=== PATIENT | female | born 1930 | race Asian ===

== ENCOUNTER → 2017-01-31 | Day surgery (SDC) | payer BC ==
--- NOTE | 2017-02-04 13:16 | PATH ---
Surgical Pathology Report Patient Name: GENE MALONEY [facility]. Rec. #: [id number] /Age/Gender: 1930 (Age: 86) / F Account: [id number] Location: [facility] Taken: 01/31/2017 Received: 01/31/2017 Reported: 02/04/2017 Physicians: Paola Warner M.D. Specimen(s) Received A: RIGHT BREAST SPECIMEN WITH CALCIFICATIONS B: RIGHT BREAST SPECIMEN WITHOUT CALCIFICATIONS C: LEFT BREAST SPECIMEN WITH CALCIFICATIONS D: LEFT BREAST SPECIMEN WITHOUT CALCIFICATIONS Clinical History Non-palpable lesion Mammographic findings: Suspicious microcalcification right & left breast Final Diagnosis A. 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 B. 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 C. 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 FEW CALCIFICATIONS ARE PRESENT IN ASSOCIATION WITH BENIGN STROMA AND BLOOD VESSEL WALL. D. BREAST, LEFT, WITHOUT CALCIFICATIONS, STEREOTACTIC BIOPSY: BENIGN BREAST TISSUE SHOWING USUAL DUCTAL HYPERPLASIA (UDH), FIBROADENOMATOID CHANGE AND STROMAL FIBROSIS. CALCIFICATIONS ARE PRESENT IN ASSOCIATION WITH SCLEROTIC STROMA IN FIBROADENOMATOID CHANGE AND BENIGN GLANDULAR PARENCHYMA. Electronically Signed Jil Bell M.D. Gross Description A. Received in formalin labeled "right breast with calcifications," are 3 anderson-yellow, cylindrical portions of fibroadipose tissue ranging from 1.7-2.6 cm in length and averaging 0.2 cm in diameter. The specimens are submitted in toto in one cassette. B. Received in formalin labeled "right breast without calcifications," are 7 anderson-yellow, cylindrical portions of fibroadipose tissue ranging from 1.5-3.8 cm in length and averaging 0.3 cm in diameter. The specimens are submitted in toto in one cassette. C. Received in formalin labeled "left breast with calcifications," are 3 anderson-yellow, cylindrical portions of fibroadipose tissue ranging from 1.3-3.2 cm in length and averaging 0.2 cm in diameter. The specimens are submitted in toto in one cassette. D. Received in formalin labeled "left breast without calcifications," are 8 anderson-yellow, cylindrical portions of fibroadipose tissue ranging from 1.2-3.1 cm in length and averaging 0.3 cm in diameter. The specimens are submitted in toto in two cassettes. Time to formalin fixation: 5 minutes Total formalin fixation time: Approximately 6 hours 01/31/2017
== END | disposition home or self-care (01) ==
LOC: FMAMMOTONE 10:19
PROVIDERS: ATTEND Internal Medicine Geriatric Medicine
PROC: 0HBV3ZX Excision of Bilateral Breast, Percutaneous Approach, Diagnostic (ICD-10-PCS; principal; 2017-01-31)
DX: D24.1 Benign neoplasm of right breast (principal); N60.91 Unspecified benign mammary dysplasia of right breast; D24.2 Benign neoplasm of left breast; N64.9 Disorder of breast, unspecified; N62 Hypertrophy of breast; N60.82 Other benign mammary dysplasias of left breast; N60.32 Fibrosclerosis of left breast; R92.8 Other abnormal and inconclusive findings on diagnostic imaging of breast
CPT/HCPCS: 19081; 19082; 87899; 88305-TC; A4648

== ENCOUNTER 2019-03-13 16:43 | Emergency (ER) | payer OTHER ==
--- NOTE | 2019-03-13 16:59 | PDOC ---
Rapid Medical Evaluation Medical Evaluation: I have performed a brief in-person evaluation of this patient. The patient presents with a chief complaint of: sent by PCP for generalized weakness and urinary incontinence from yesterday; denies trauma, back pain, sob , cp, abd pain, vomiting, dizziness; patient ambulatory at baseline; hx of HTN Pertinent physical exam findings: In NAD, no focal deficits I have ordered the following: Labs, EKG, urine The patient will proceed to the ED for further evaluation. 03/13/19 16:52
[2019-03-13 17:00] VITALS: BP 140/80; PULSE 83; TEMP 98.5; BMI 26.4
[2019-03-13 17:56] LABS: BASO % 1.1 % (0-2.0); EOS % 1.2 % (0-4.5); HEMATOCRIT 41.1 % (32.4-45.2); HEMOGLOBIN 13.5 GM/dL (10.7-15.3); LYMPH % 37.1 % (8-40); MCHC 32.9 g/dl (32.0-36.0); MEAN CELL VOLUME 94.4 fl (80-96); MEAN PLT VOLUME 9.2 fl (7.5-11.1); NEUT % 52.6 % (42.8-82.8); PLATELET COUNT 181 K/MM3 (134-434); RBC 4.35 M/mm3 (3.60-5.2); RDW 14.9 % (11.6-15.6); WHITE BLOOD COUNT 5.6 K/mm3 (4.0-10.0)
[2019-03-13 18:22] LABS: ALBUMIN 3.7 g/dl (3.4-5.0); ALK PHOS 62 U/L (45-117); ANION GAP 7 MMOL/L (8-16); BILIRUBIN,TOTAL 0.4 mg/dL (0.2-1); BLOOD UREA NITROGEN 15.6 mg/dL (7-18); CALCIUM 9.3 mg/dL (8.5-10.1); CHLORIDE 101 mmol/L (98-107); CO2 27 mmol/L (21-32); CREATININE 0.8 mg/dL (0.55-1.3); GLUCOSE,RANDOM 100 mg/dL (74-106); POTASSIUM 4.1 mmol/L (3.5-5.1); SGOT/AST 50 U/L (15-37); SGPT/ALT 45 U/L (13-61); SODIUM 136 mmol/L (136-145); TOT PROT 7.4 g/dl (6.4-8.2)
[2019-03-13 18:23] LABS: URINE APPEARANCE CLEAR; URINE BILIRUBIN NEGATIVE (NEGATIVE); URINE COLOR YELLOW; URINE GLUCOSE (UA) NEGATIVE (NEGATIVE); URINE KETONE NEGATIVE (NEGATIVE); URINE LEUK ESTERASE NEGATIVE (NEGATIVE); URINE NITRITE NEGATIVE (NEGATIVE); URINE PROTEIN TRACE (NEGATIVE); URINE UROBILINOGEN 0.2 mg/dL (0.2-1.0)
--- NOTE | 2019-03-13 19:58 | PDOC ---
History of Present Illness - General Chief Complaint: Weakness Stated Complaint: WEAKNESS Time Seen by Provider: 03/13/19 16:51 History Source: Patient Exam Limitations: No Limitations Past History - Past Medical History Allergies/Adverse Reactions: Allergies Allergy/AdvReac Type Severity Reaction Status Date / Time No Known Allergies Allergy Verified 03/13/19 16:55 COPD: No - Immunization History Immunization Up to Date: Yes - Suicide/Smoking/Psychosocial Hx Smoking History: Never smoked Have you smoked in the past 12 months: No Information on smoking cessation initiated: No Hx Alcohol Use: No Drug/Substance Use Hx: No *Physical Exam - Vital Signs Last Vital Signs Temp Pulse Resp BP Pulse Ox 98.5 F 83 16 140/80 98 03/13/19 16:55 03/13/19 16:55 03/13/19 16:55 03/13/19 16:55 03/13/19 16:55 ED Treatment Course - LABORATORY CBC & Chemistry Diagram: 03/13/19 17:21 03/13/19 17:21 - ADDITIONAL ORDERS Additional order review: Laboratory Results 03/13/19 03/13/19 18:02 17:21 Sodium 136 Potassium 4.1 Chloride 101 Carbon Dioxide 27 Anion Gap 7 L BUN 15.6 Creatinine 0.8 Est GFR (CKD-EPI)AfAm 76.83 Est GFR (CKD-EPI)NonAf 66.29 Random Glucose 100 Calcium 9.3 Total Bilirubin 0.4 AST 50 H ALT 45 Alkaline Phosphatase 62 Troponin I < 0.02 Total Protein 7.4 Albumin 3.7 Urine Color Yellow Urine Appearance Clear Urine pH 7.0 Ur Specific [place] 1.006 L Urine Protein Trace Urine Glucose (UA) Negative Urine Ketones Negative Urine Blood Negative Urine Nitrite Negative Urine Bilirubin Negative Urine Urobilinogen 0.2 Ur Leukocyte Esterase Negative 03/13/19 17:21 RBC 4.35 MCV 94.4 MCHC 32.9 RDW 14.9 MPV 9.2 Neutrophils % 52.6 Lymphocytes % 37.1 Monocytes % 8.0 Eosinophils % 1.2 Basophils % 1.1 - RADIOLOGY Radiology Studies Ordered: Category Date Time Status HEAD CT WITHOUT CONTRAST [CT] Stat CT Scan 03/13/19 19:55 Ordered CHEST PA & LAT [RAD] Stat Radiology 03/13/19 19:21 Ordered *DC/Admit/Observation/Transfer Diagnosis at time of Disposition: Weakness - Discharge Dispostion Disposition: HOME Decision to Admit order: No - Referrals Referrals: Walker Medina MD [Primary Care Provider] - - Patient Instructions Printed Discharge Instructions: DI for Muscle Weakness Additional Instructions: You were seen in the emergency department for the evaluation of you weakness. Your labs were within normal limits and your head ct was negative. Please follow up with Dr. Medina within 1 week after discharge. Please return to the emergency department if you have worsening pain or new concerning symptoms such as nausea/vomiting, shortness of breath, and fevers. - Post Discharge Activity
--- NOTE | 2019-03-13 23:42 | PDOC ---
Documentation entered by Juan Fox SCRIBE, acting as scribe for Mal Cm MD. Mal Cm MD: This documentation has been prepared by the Dominique bauman Xhesika, SCRIBE, under my direction and personally reviewed by me in its entirety. I confirm that the documentation accurately reflects all work, treatment, procedures, and medical decision making performed by me. Attending Attestation - Resident Resident Name: Lyle Rodríguez - ED Attending Attestation I have performed the following: I have examined & evaluated the patient, The case was reviewed & discussed with the resident, I agree w/resident's findings & plan, Exceptions are as noted - HPI HPI: 03/13/19 22:15 The patient is an 88 year old female, with a significant past medical history of HTN, Parkinsons, and fatty liver who presents to the ED for generalized weakness since yesterday. Patient states she was trying to stand up and use the restroom, however, she had b/l leg weakness so she crawled to the bathroom and endorsed urinary incontinence. Patient called her PCP, Dr. Medina, and was advised to come to the ED for CT. Pt denies falling or any trauma. The patient denies chest pain, shortness of breath. Denies fever, chills, cough , nausea, vomiting, diarrhea and constipation. Denies dysuria, frequency, urgency and hematuria. Allergies:, NKDA Social Hx: Denies current smoking, drinking, or other substance usage. PCP: Dr. Medina - Physicial Exam PE: 03/13/19 22:16 Vitals: Triage Vital signs reviewed General Appearance: no acute distress, well nourished well developed, Head: Atraumatic, normocephalic Neck: Supple;No Nuchal rigidity Chest Wall: Nontender Cardiac: Regular rate and rhythm, no murmurs, no rubs, no gallops, Lungs: Clear to auscultation bilateral, good air movement bilaterally, Abdomen: Soft, nondistended, normal bowel sounds, nontender to palpation Extremities: Full range of motion to all extremities, no cyanosis, clubbing, or edema Skin: Warm and dry, no rashes or lesions, no petechiae Neuro: AOX3; Cranial Nerves 2-12 grossly c intact, Strength intact to all extremities, Sensation intact to all extremities, gait normal Psych: normal mood, normal affect - Medical Decision Making 03/14/19 01:52 The patient is an 88 year old female, with a significant past medical history of HTN, Parkinsons, and fatty liver who presents to the ED for generalized weakness since yesterday. Patient states she was trying to stand up and use the restroom, however, she had b/l leg weakness so she crawled to the bathroom and endorsed urinary incontinence. Patient called her PCP, Dr. Medina, and was advised to come to the ED for CT. Pt denies falling or any trauma. Pt. with no CT abnormalities, labs wnl. Pt. requesting to return home. Findings the need for follow up and strict return instructions d/w patient
--- NOTE | 2019-03-16 07:15 | EKG ---
Test Reason : Blood Pressure : / mmHG Vent. Rate : 084 BPM Atrial Rate : 084 BPM P-R Int : 206 ms QRS Dur : 086 ms QT Int : 384 ms P-R-T Axes : 054 005 031 degrees QTc Int : 453 ms NORMAL SINUS RHYTHM NORMAL ECG WHEN COMPARED WITH ECG OF 01-APR-2011 02:10, NO SIGNIFICANT CHANGE WAS FOUND Confirmed by BHAVESH MCGRATH MD ([id number]) on 03/16/2019 7:15:49 AM Referred By: Confirmed By:BHAVESH MCGRATH MD
== END 2019-03-13 22:52 | disposition home or self-care (01) ==
LOC: JER 16:43
DX: R53.1 Weakness (principal); I10 Essential (primary) hypertension; G20 Parkinson's disease; K76.0 Fatty (change of) liver, not elsewhere classified
CPT/HCPCS: 36415; 70450-TC; 71046-TC-FY; 80053; 81003; 82550; 82553; 84484; 85025; 87086; 93005; 93010; 99283-25

== ENCOUNTER 2021-03-21 11:04 | Inpatient (IN) | payer OTHER ==
[2021-03-21 11:33] VITALS: BMI 28.3
[2021-03-21 13:25] LABS: BASO % 1.5 % (0-2.0); EOS % 0.5 % (0-4.5); HEMATOCRIT 37.9 % (32.4-45.2); HEMOGLOBIN 13.1 GM/dL (10.7-15.3); LYMPH % 32.7 % (8-40); MCH 32.4 pg (25.7-33.7); MCHC 34.6 g/dl (32.0-36.0); MEAN CELL VOLUME 93.7 fl (80-96); MEAN PLT VOLUME 8.4 fl (7.5-11.1); MONO % 8.2 % (3.8-10.2); NEUT % 57.1 % (42.8-82.8); PLATELET COUNT 186 10^3/uL (134-434); RBC 4.04 M/mm3 (3.60-5.2); RDW 14.5 % (11.6-15.6); WHITE BLOOD COUNT 5.3 K/mm3 (4.0-10.0)
[2021-03-21 13:45] LABS: CHLORIDE 105 mmol/L (98-107); SODIUM 140 mmol/L (136-145)
[2021-03-21 13:47] LABS: ALBUMIN 3.7 g/dl (3.4-5.0); ANION GAP 8 MMOL/L (8-16); BLOOD UREA NITROGEN 22.4 mg/dL (7-18); CALCIUM 9.3 mg/dL (8.5-10.1); CO2 28 mmol/L (21-32)
[2021-03-21 13:48] LABS: GLUCOSE,RANDOM 88 mg/dL (74-106)
[2021-03-21 13:51] LABS: CREATININE 0.8 mg/dL (0.55-1.3); SGOT/AST 25 U/L (15-37); SGPT/ALT 28 U/L (13-61)
[2021-03-21 13:52] LABS: BILIRUBIN,TOTAL 0.7 mg/dL (0.2-1); TOT PROT 7.8 g/dl (6.4-8.2)
[2021-03-21 13:53] LABS: ALK PHOS 48 U/L (45-117)
[2021-03-21 16:30] LABS: EPI CELLS 8 /uL (0-25.1); HYALINE CASTS 0 /uL (0-3.1); PH,URINE 5.5 (5.0-8.0); URINE APPEARANCE CLEAR; URINE BACTERIA 3493 /uL (0-1359); URINE BILIRUBIN NEGATIVE (NEGATIVE); URINE COLOR YELLOW; URINE GLUCOSE (UA) NEGATIVE (NEGATIVE); URINE KETONE TRACE (NEGATIVE); URINE LEUK ESTERASE TRACE (NEGATIVE); URINE NITRITE POSITIVE (NEGATIVE); URINE PROTEIN NEGATIVE (NEGATIVE); URINE RBC 4 /uL (0-23.9); URINE UROBILINOGEN 0.2 mg/dL (0.2-1.0); URINE WBC 50 /uL (0-25.8)
[2021-03-22 07:24] LABS: BASO % 1.3 % (0-2.0); EOS % 1.6 % (0-4.5); HEMATOCRIT 36.3 % (32.4-45.2); HEMOGLOBIN 12.5 GM/dL (10.7-15.3); LYMPH % 36.6 % (8-40); MCH 32.2 pg (25.7-33.7); MCHC 34.5 g/dl (32.0-36.0); MEAN CELL VOLUME 93.4 fl (80-96); MEAN PLT VOLUME 8.3 fl (7.5-11.1); MONO % 7.1 % (3.8-10.2); NEUT % 53.4 % (42.8-82.8); PLATELET COUNT 162 10^3/uL (134-434); RBC 3.89 M/mm3 (3.60-5.2); RDW 14.3 % (11.6-15.6); WHITE BLOOD COUNT 6.5 K/mm3 (4.0-10.0)
[2021-03-22 07:45] LABS: CALCIUM 8.7 mg/dL (8.5-10.1)
[2021-03-22 07:46] LABS: BLOOD UREA NITROGEN 21.2 mg/dL (7-18)
[2021-03-22 07:49] LABS: CREATININE 0.7 mg/dL (0.55-1.3)
[2021-03-22] MEDS: ATENOLOL 50 MG TABLET (FP) PO SCH (16:12)
[2021-03-22] MEDS: LOSARTAN 50MG/HCTZ 12.5MG 1 TAB PO SCH (17:26)
[2021-03-23] MEDS: ATENOLOL 50 MG TABLET (FP) PO SCH (10:33)
[2021-03-23] MEDS: LOSARTAN 50MG/HCTZ 12.5MG 1 TAB PO SCH (10:33)
[2021-03-24] MEDS ORDERED: PT OWN MED DRAWER 7, Y5N ONE (10:09)
[2021-03-24] MEDS: LOSARTAN 50MG/HCTZ 12.5MG 1 TAB PO SCH (10:11)
[2021-03-24] MEDS: ATENOLOL 50 MG TABLET (FP) PO SCH (10:11)
[2021-03-25] MEDS ORDERED: PT OWN MED DRAWER 7, Y5N ONE (09:20)
[2021-03-25] MEDS: ATENOLOL 50 MG TABLET (FP) PO SCH (09:42)
[2021-03-25] MEDS: LOSARTAN 50MG/HCTZ 12.5MG 1 TAB PO SCH (09:42)
[2021-03-26] MEDS: ATENOLOL 50 MG TABLET (FP) PO SCH (09:41)
[2021-03-26] MEDS: LOSARTAN 50MG/HCTZ 12.5MG 1 TAB PO SCH (09:41)
[2021-03-27 08:54] VITALS: BP 150/71; PULSE 63; TEMP 98.1
[2021-03-27] MEDS ORDERED: PT OWN MED DRAWER 7, Y5N ONE (09:05)
[2021-03-27] MEDS: ATENOLOL 50 MG TABLET (FP) PO SCH (09:10)
[2021-03-27] MEDS: LOSARTAN 50MG/HCTZ 12.5MG 1 TAB PO SCH (09:10)
== END 2021-03-27 14:59 | DRG 690 ==
LOC: JER 11:04 → JERBED 15:02 → OBSVTOIN 18:06 → J7W 21:10
PROVIDERS: ADMIT Internal Medicine; ATTEND Internal Medicine
DX: N39.0 Urinary tract infection, site not specified (principal); G20 Parkinson's disease; I44.0 Atrioventricular block, first degree; M62.81 Muscle weakness (generalized); I10 Essential (primary) hypertension; B96.20 Unspecified Escherichia coli [E. coli] as the cause of diseases classified elsewhere; R41.81 Age-related cognitive decline; R26.81 Unsteadiness on feet; E66.9 Obesity, unspecified; Z68.27 Body mass index [BMI] 27.0-27.9, adult; R29.898 Other symptoms and signs involving the musculoskeletal system; W18.30XA Fall on same level, unspecified, initial encounter; Y92.092 Bedroom in other non-institutional residence as the place of occurrence of the external cause
CPT/HCPCS: 36415; 70450-TC; 71045-TC-FY; 80048; 80053; 81003; 82550; 82553; 84484; 85025; 87086; 87186; 93005; 93010; 97116-GP; 97162-GP; 99285-25; C9803; G0378; U0003; U0005